=== PATIENT | female | born 1985 | race Caucasian/White ===

== ENCOUNTER 2017-11-05 13:06 | Emergency (ER) | payer OTHER ==
[~2017-11-05] VITALS: Ht 180.3 cm; Wt 88.5 kg
[~2017-11-05 13:06] MED LIST: BENTYL20 MG PO; NUVARING1 ICR VG; ZOFRAN ODT4 MG PO
[2017-11-05 13:36] LABS: ABSOLUTE BASOPHIL COUNT 0.1 /CUMM (0.0-0.2); ABSOLUTE EOSINOPHIL COUNT 0 /CUMM (0.0-0.7); ABSOLUTE GRANULOCYTE CT 6.9 /CUMM (1.4-6.5); ABSOLUTE LYMPH COUNT 1.5 /CUMM (1.2-3.4); ABSOLUTE MONOCYTE COUNT 0.3 /CUMM (0.10-0.60); BASOPHIL % 0.6 % (0.0-2.0); EOSINOPHIL % 0.2 % (0-5); GRANULOCYTE % 78.2 % (42.2-75.2); HEMATOCRIT 41.8 % (37-47); MEAN CORPUSCULAR HGB 28.9 PG (27.0-31.0); MEAN CORPUSCULAR VOLUME 85.1 FL (81.0-99.0); MEAN PLATELET VOLUME 8.3 FL (7.4-10.4); PLATELET COUNT 210 /CUMM (130-400); RED BLOOD CELL CT 4.92 /CUMM (4.20-5.40); WHITE BLOOD CELL COUNT 8.8 /CUMM (4.8-10.8)
--- NOTE | 2017-11-05 13:50 | ED GI/GU/ABDOMINAL COMPLAINT ---
History of Present Illness General Chief Complaint: Abdominal Pain/Flank Pain Stated Complaint: ABD PAIN Source: patient Exam Limitations: no limitations Vital Signs & Intake/Output Vital Signs & Intake/Output Vital Signs Date Time Temp Pulse Resp B/P B/P Pulse O2 O2 Flow FiO2 Mean Ox Delivery Rate 11/05 1623 98.4 67 16 104/72 99 Room Air 11/05 1455 98.6 75 20 125/80 98 Room Air 11/05 1330 98 Room Air 11/05 1308 98.0 112 18 131/88 98 Room Air Allergies Coded Allergies: NO KNOWN ALLERGIES (NKDA) (06/23/10) Reconcile Medications Ciprofloxacin HCl (Cipro) 500 MG TABLET 1 TAB PO BID colitis Dicyclomine Hydrochloride (Bentyl) 20 MG TAB 1 TAB PO 4 TIMES/DAY PRN ABDOMINAL PAIN ETONOGESTREL/ETHINYL ESTRADIOL (Nuvaring Vaginal Ring) 0.12 MG -0.015 MG/24 HR VAG.RING 1 EACH VG Q30D CONTROL (Reported) use for 3 weeks, skip for 1 week Metronidazole (Flagyl) 500 MG TABLET 1 TAB PO TID colitis Ondansetron (Zofran Odt) 4 MG TAB.RAPDIS 1 TAB PO Q8H PRN NAUSEA Triage Note: 32 YO FEMALE TO [facility] FOR EVAL OF MID ABD TO L UPPER/LOWER ABD PAIN SINCE 10PM LAST NIGHT. STATES +[place], STATES THIS AM THERE WAS BRB IN [place]. +NAUSEA. Triage Nurses Notes Reviewed? yes ? n Is pt currently ? No Onset: Gradual Duration: day(s): Timing: recent history Quality/Severity: moderate Severity Numbers: 8 Location: left lower quadrant, left upper quadrant HPI: 32yo female with hx of gastritis presents to ED complaining of abdominal pain beginning last night. She reports LUQ and LLQ abdominal pain, 8/10, constant, without radiation. She reports >10 episodes of diarrhea over the past 2 days, today she noticed bright red blood present in bowel movement. She states some bowel movements were entirely blood. She reports associated nausea and anorexia, no vomiting. She reports palpatations for the past few days intermittently. She denies fevers, chills, urinary symptoms. Patient states she has seen a GI specialist 5 years ago from chronic LLQ abd pain. AT that time she had endoscopy performed which diagnosed gastritis. Patient began gluten free diet and states her symptoms improved, she had not followed up with GI since then. (Cora Gutierrez) Past History Travel History Traveled to [place] past 21 day No Medical History Any Pertinent Medical History? see below for history Neurological: NONE EENT: NONE Cardiovascular: NONE Respiratory: NONE Gastrointestinal: gastritis Hepatic: NONE Renal: NONE Musculoskeletal: NONE Psychiatric: NONE Endocrine: NONE Blood Disorders: NONE Cancer(s): NONE BRAILLE TRANSCRIBER/Reproductive: NONE Surgical History Surgical History: none Psychosocial History What is your primary language Moh[place] Tobacco Use: Never used Family History Hx Contributory? No (Cora Gutierrez) Review of Systems Review of Systems Constitutional: Reports: no symptoms. EENTM: Reports: no symptoms. Respiratory: Reports: no symptoms. Cardiovascular: Reports: see HPI. GI: Reports: see HPI. Genitourinary: Reports: no symptoms. Musculoskeletal: Reports: no symptoms. Skin: Reports: no symptoms. Neurological/Psychological: Reports: no symptoms. Hematologic/Endocrine: Reports: no symptoms. Immunologic/Allergic: Reports: no symptoms. All Other Systems: Reviewed and Negative (Cora Gutierrez) Physical Exam Physical Exam General Appearance: well developed/nourished, no apparent distress, alert, awake Head: atraumatic, normal appearance Eyes: Bilateral: normal appearance. Ears, Nose, Throat, Mouth: hearing grossly normal Neck: normal inspection, supple, full range of motion Respiratory: normal breath sounds, no respiratory distress, lungs clear Cardiovascular: regular rate/rhythm Gastrointestinal: normal bowel sounds, soft, no organomegaly, LUQ, LLQ tenderness, without gaurding, no rebound Rectal: heme positive stool Back: normal inspection, normal range of motion Extremities: normal range of motion Neurologic/Psych: awake, alert, oriented x 3 Skin: intact, normal color, warm/dry Core Measures ACS in differential dx? No Sepsis Present: No Sepsis Focused Exam Completed? No (Cora Gutierrez) Progress Differential Diagnosis: appendicitis, bowel obstruction, colon cancer, cholecystitis, diverticulitis, gastritis, inflamm bowel dis, kidney stone, peptic ulcer, PUD/GERD, SBO, UTI/pyelo, GI bleeding, colitis, IBD Plan of Care: Orders Procedure Date/time Status EKG 11/05 1349 Active URINE 11/05 1312 Complete URINALYSIS 11/05 1312 Complete LIPASE 09/03 1312 Complete HIGH SENSITIVITY CRP 11/06 1311 Complete COMPREHENSIVE METABOLIC PANEL 11/06 1311 Complete CBC WITHOUT DIFFERENTIAL 11/06 1311 Complete Laboratory Tests 11/05/17 1400: Urine Color STRAW, Urine Clarity CLEAR, Urine pH 6.0, Ur Specific [place] <= 1.005, Urine Protein NEG, Urine Ketones NEG, Urine Nitrite NEG, Urine Bilirubin NEG, Urine Urobilinogen 0.2, Ur Leukocyte Esterase NEG, Ur Microscopic SEDIMENT EXAMINED, Urine RBC RARE, Ur Epithelial Cells FEW, Urine Bacteria RARE H, Urine Hemoglobin TRACE-INTACT, Urine Glucose NEG, Urine Test NEGATIVE 11/05/17 1327: Anion Gap 10, Estimated GFR > 60, BUN/Creatinine Ratio 12.9, Glucose 99, Calcium 9.9, Total Bilirubin 0.8, AST 19, ALT 22, Alkaline Phosphatase 49, C-React Prot High Sens 4.0 H, Total Protein 7.5, Albumin 4.5, Globulin 3.0, Albumin/Globulin Ratio 1.5, Lipase 88, CBC w Diff NO MAN DIFF REQ, RBC 4.92, MCV 85.1, MCH 28.9, MCHC 34.0, RDW 13.0, MPV 8.3, Gran % 78.2 H, Lymphocytes % 17.4 L, Monocytes % 3.6, Eosinophils % 0.2, Basophils % 0.6, Absolute Granulocytes 6.9 H, Absolute Lymphocytes 1.5, Absolute Monocytes 0.3, Absolute Eosinophils 0, Absolute Basophils 0.1 CT scan shows possible focal thickening to the splenic flexure of colon, labs are stable with mildly elevated CRP. Patient is afebrile, no acute distress. Symptoms may be consistent with colitis versus IBD or IBS. Diverticulosis may also cause bright red rectal bleeding. Patient's H/H is stable. Patient has a GI doctor in [place]. Started patient on Cipro and Flagyl and will have her follow-up with her GI doctor for further evaluation. Patient in no acute distress, vital signs are stable, she is ambulatory here in the emergency department. She agrees with the plan of care. Discussed findings with Dr. Paniagua agrees with the plan of care. Diagnostic Imaging: Viewed by Me: CT Scan. Discussed w/RAD: CT Scan. Radiology Impression: PATIENT: GABRIELLA ZEPEDA PRESENT AGE: 32 PATIENT ACCOUNT NO: [id number] : 84 LOCATION: [facility] ORDERING PHYSICIAN: Cora RAMIREZ SERVICE DATE: 11/05/17 EXAM TYPE: CAT - CT ABD & PELVIS W IV CONTRAST EXAMINATION: CT ABDOMEN AND PELVIS WITH CONTRAST CLINICAL INFORMATION: Left lower quadrant pain, bright red blood per rectum. Rule out diverticulitis, Crohn's disease, inflammatory bowel disease, colitis. COMPARISON: CT of the chest dated 02/28/2014. TECHNIQUE: Multidetector CT volumetric acquisition of the abdomen and pelvis was performed after the administration of 95 mL of intravenous Optiray 320. The data set was reformatted in the sagittal and coronal planes and reviewed on an independent workstation. DLP: 629.97 mGy-cm. FINDINGS: LOWER CHEST: Included lung bases unremarkable. LIVER, GALLBLADDER, BILIARY TREE: Liver normal size and attenuation. No focal cystic or solid mass or intra-or extrahepatic ductal dilatation. Hepatic and portal veins patent. Gallbladder partially distended and within normal limits. PANCREAS: Normal. No ductal dilatation, mass, or surrounding stranding. SPLEEN: Normal size and appearance. Splenic vein patent. ADRENAL GLANDS AND KIDNEYS: Adrenal glands normal. Kidneys bilaterally symmetric in size and function. No focal mass, hydronephrosis, nephrolithiasis or perinephric stranding. URETERS AND BLADDER: Ureters decompressed and within normal limits. Bladder partially distended and within normal limits. PELVIC ORGANS: Uterus and adnexa are unremarkable. There appears to be a vaginal pessary or unusual tampon in place. Small amount of free fluid is seen in the cul-de-sac. GASTROINTESTINAL TRACT: A few scattered sigmoid colonic diverticula are seen. An approximately 10 cm long segment of the splenic flexure of the colon appears circumferentially thickened without significant surrounding inflammatory change or mesenteric edema seen ( best seen on coronal series 602, image 39 through 44). Finding is nonspecific and may be simply related to underdistention. The colon is otherwise grossly unremarkable. Small bowel loops , including terminal ileum, decompressed and unremarkable. Appendix not distinctly identified, but no focal inflammatory process in the right lower quadrant seen. LYMPHOVASCULAR STRUCTURES: Abdominal aorta normal in caliber. No periaortic collections. No abdominal or pelvic adenopathy or free fluid collection. BONES: Prominent nutrient vessel is seen along the medial margin of the posterior lateral right 10th rib (series 2, image 18). Bony structures otherwise unremarkable. IMPRESSION: 1. Mild sigmoid colonic diverticulosis. No acute diverticulitis. 2. Questionable segmental circumferential thickening of the splenic flexure of the colon versus artifactual appearance related to underdistention. In the clinical setting provided, further evaluation is warranted. Consider repeat CT scan after the administration of oral and rectal contrast and IV contrast. DICTATED BY: Mariza Knox MD DATE/TIME DICTATED:11/05/171456 [employer] INSTRUCTOR:RHONA DATE /TIME TRANSCRIBED:11/05/171456 CONFIDENTIAL, DO NOT COPY WITHOUT APPROPRIATE AUTHORIZATION. <Electronically signed in Other Vendor System> SIGNED BY: Mariza Knox MD 11/05/17 1524 Initial ED EKG: sinus rhythm @75bpm, nonspecific ST changes Prior EKG: unchanged (02/28/14) (Paula RAMIREZ,Cora Monaco) Departure Departure Disposition: HOME OR SELF CARE Condition: Stable Clinical Impression Primary Impression: Abdominal pain Qualifiers: Abdominal location: left lower quadrant Qualified Code: R10.32 - Left lower quadrant pain Secondary Impressions: Blood in stool Diarrhea Qualifiers: Diarrhea type: unspecified type Qualified Code: R19.7 - Diarrhea, unspecified Referrals: Darien OWEN,Kadeem Claire (PCP/Family) Additional Instructions: Take antibiotics as prescribed. You may take ibuprofen for pain. Follow up with your GI doctor. Contact medical records to obtain your CT scan disc. Return with worsening symptoms or concerns. Please note that there might be incidental findings in your evaluation that are unrelated to the current emergency department visit. Please notify your primary care doctor about this emergency department visit in order to obtain and review all of the testing performed so that these incidental findings can be monitored as needed. If you had an x-ray performed, please understand that some fractures may not be seen on the initial set of x-rays. If your symptoms persist you might need a repeat set of x-rays to check for such a fracture. If you had a laceration evaluated, please understand that foreign bodies such as glass or wood may not be visible to the naked eye or on plain x-rays. If the wound becomes red, swollen, increasingly more painful or if there is any drainage from the wound, please have it reevaluated by a physician for the possibility of a retained foreign body. If you're unable to follow up as outlined in the discharge instructions please return to the emergency department. Thank you for choosing the [facility] Emergency Department for your care. It was a pleasure to serve you today. Departure Forms: Customer Survey General Discharge Information Prescriptions: Current Visit Scripts Ciprofloxacin HCl (Cipro) 1 TAB PO BID #20 TAB Metronidazole (Flagyl) 1 TAB PO TID #30 TAB (Paula RAMIREZ,Cora Monaco) PA/TILE MECHANIC HELPER Co-Sign Statement Statement: ED Attending supervision documentation- [] I saw and evaluated the patient. I have also reviewed all the pertinent lab results and diagnostic results. I agree with the findings and the plan of care as documented in the PA's/TILE MECHANIC HELPER's documentation. [X] I have reviewed the ED Record and agree with the PA's/TILE MECHANIC HELPER's documentation. [] Additions or exceptions (if any) to the PAs/TILE MECHANIC HELPER's note and plan are summarized below: [] (Arcelia OWEN,Franc Bobby)
--- NOTE | 2017-11-05 15:24 | CT SCAN REPORT ---
EXAMINATION: CT ABDOMEN AND PELVIS WITH CONTRAST CLINICAL INFORMATION: Left lower quadrant pain, bright red blood per rectum. Rule out diverticulitis, Crohn's disease, inflammatory bowel disease, colitis. COMPARISON: CT of the chest dated 02/28/2014. TECHNIQUE: Multidetector CT volumetric acquisition of the abdomen and pelvis was performed after the administration of 95 mL of intravenous Optiray 320. The data set was reformatted in the sagittal and coronal planes and reviewed on an independent workstation. DLP: 629.97 mGy-cm. FINDINGS: LOWER CHEST: Included lung bases unremarkable. LIVER, GALLBLADDER, BILIARY TREE: Liver normal size and attenuation. No focal cystic or solid mass or intra-or extrahepatic ductal dilatation. Hepatic and portal veins patent. Gallbladder partially distended and within normal limits. PANCREAS: Normal. No ductal dilatation, mass, or surrounding stranding. SPLEEN: Normal size and appearance. Splenic vein patent. ADRENAL GLANDS AND KIDNEYS: Adrenal glands normal. Kidneys bilaterally symmetric in size and function. No focal mass, hydronephrosis, nephrolithiasis or perinephric stranding. URETERS AND BLADDER: Ureters decompressed and within normal limits. Bladder partially distended and within normal limits. PELVIC ORGANS: Uterus and adnexa are unremarkable. There appears to be a vaginal pessary or unusual tampon in place. Small amount of free fluid is seen in the cul-de-sac. GASTROINTESTINAL TRACT: A few scattered sigmoid colonic diverticula are seen. An approximately 10 cm long segment of the splenic flexure of the colon appears circumferentially thickened without significant surrounding inflammatory change or mesenteric edema seen (best seen on coronal series 602, image 39 through 44). Finding is nonspecific and may be simply related to underdistention. The colon is otherwise grossly unremarkable. Small bowel loops , including terminal ileum, decompressed and unremarkable. Appendix not distinctly identified, but no focal inflammatory process in the right lower quadrant seen. LYMPHOVASCULAR STRUCTURES: Abdominal aorta normal in caliber. No periaortic collections. No abdominal or pelvic adenopathy or free fluid collection. BONES: Prominent nutrient vessel is seen along the medial margin of the posterior lateral right 10th rib (series 2, image 18). Bony structures otherwise unremarkable. IMPRESSION: 1. Mild sigmoid colonic diverticulosis. No acute diverticulitis. 2. Questionable segmental circumferential thickening of the splenic flexure of the colon versus artifactual appearance related to underdistention. In the clinical setting provided, further evaluation is warranted. Consider repeat CT scan after the administration of oral and rectal contrast and IV contrast.
[2017-11-05] MEDS ORDERED: FLAGYL500 MG PO (16:13)
[2017-11-05] MEDS ORDERED: CIPRO500 M1 PO (16:13)
[2017-11-05 16:23] VITALS: BP 104/72
== END 2017-11-05 16:26 ==
LOC: ERH 13:06
PROVIDERS: Physician Assistant
DX: R10.12 Left upper quadrant pain (principal); R10.32 Left lower quadrant pain; K92.1 Melena; R19.7 Diarrhea, unspecified
CPT/HCPCS: 74177; 81001; 81025; 93005; 93010; 96374; J1885